=== PATIENT | male | born 2000 | race American Indian/Alaskan Native ===

== ENCOUNTER 2024-07-23 10:44 | Emergency (ER) | payer OTHER ==
[~2024-07-23] VITALS: Ht 188 cm; Wt 63.5 kg
[2024-07-23] MEDS ORDERED: Analpram-HC 2.530 GM TOP (12:42)
== END 2024-07-24 12:36 | disposition home or self-care (01) ==
LOC: ER 10:44
DX: K64.9 Unspecified hemorrhoids (principal)
CPT/HCPCS: 99283

== ENCOUNTER 2024-08-30 11:03 | Emergency (ER) | payer OTHER ==
[~2024-08-30] VITALS: Ht 167.6 cm; Wt 56.7 kg
[~2024-08-30 11:03] MED LIST: Analpram-HC 2.530 GM TOP
[2024-08-30] MEDS ORDERED: DIBU30TO TOP (11:23)
[2024-08-30] MEDS ORDERED: Preparation H26 GM TOP (11:23)
== END 2024-08-30 11:35 | disposition home or self-care (01) ==
LOC: ER 11:03
DX: K62.89 Other specified diseases of anus and rectum (principal); Z76.0 Encounter for issue of repeat prescription
CPT/HCPCS: 99282